=== PATIENT | male | born 1935 | race African-American/Black ===

== ENCOUNTER 2022-02-21 15:00 | Inpatient (IN) | payer OTHER ==
[~2022-02-21] VITALS: Ht 177.8 cm; Wt 74.8 kg
[2022-02-21 16:06] LABS: BASOPHILS % 0.3 % (0.0-2.0); EOSINOPHILS % 0.2 % (0.0-5.0); HEMATOCRIT. 39.5 % (42.0-52.0); HEMOGLOBIN. 13.5 g/dL (14.0-18.0); LYMPHOCYTES % 12.3 % (20.0-50.0); MEAN CORPUSCULAR HEMOGLOBIN 32.1 pg (28.0-32.0); MEAN CORPUSCULAR VOLUME 93.8 fL (80.0-94.0); MONOCYTES % 6.7 % (2.0-8.0); NEUTROPHILS % 80.5 % (40.0-76.0); PLATELET 194 x1000/uL (130-400); RED BLOOD CELL COUNT 4.21 mill/uL (4.7-6.1); RED CELL DISTRIBUTION WIDTH 13.7 % (11.6-14.6)
[2022-02-21 16:10] LABS: CHLORIDE 105 mEq/L (98-107)
[2022-02-21] MEDS ORDERED: ACETAMINOPHEN 325MG TABLET PO ONE (16:45)
[2022-02-21 17:12] LABS: CREATINE KINASE 67 IU/L (39-308); ETHANOL BLOOD < 10 mg/dL
[2022-02-21] MEDS ORDERED: MORPHINE SULFATE 4 MG/ML CPJ (NOT FOR IM USE) IV ONE (19:00)
[2022-02-21] MEDS ORDERED: KETOROLAC 30MG/ML VIAL IV ONE (21:45)
[2022-02-21] MEDS ORDERED: SODIUM CHLORIDE 0.9% 1,000 ML IV ONE (21:45)
[2022-02-22 05:58] LABS: CLARITY URINE CLEAR (CLEAR); COLOR URINE YELLOW (YELLOW); KETONES URINE NEGATIVE (NEGATIVE); LEUKOCYTE ESTERASE URINE NEGATIVE (NEGATIVE); NITRITE URINE NEGATIVE (NEGATIVE); OCCULT BLOOD URINE NEGATIVE (NEGATIVE); PH URINE 5.5 (4.5-8.0); PROTEIN URINE NEGATIVE (NEGATIVE); SPECIFIC GRAVITY URINE 1.016 (1.005-1.030)
[2022-02-22 06:16] LABS: *AMPHETAMINES SCREEN URINE NEGATIVE (NEGATIVE); *BARBITURATES SCREEN URINE NEGATIVE (NEGATIVE); *BENZODIAZEPINES SCREEN URINE NEGATIVE (NEGATIVE); *COCAINE SCREEN URINE NEGATIVE (NEGATIVE); CANNABINOID URINE SCREEN NEGATIVE (NEGATIVE); METHADONE URINE SCREEN NEGATIVE (NEGATIVE); OPIATES URINE SCREEN PRESUMTIVE POSITIVE (NEGATIVE); PHENCYCLIDINE URINE SCREEN NEGATIVE (NEGATIVE)
[2022-02-22] MEDS ORDERED: DEXTROSE 50% WATER 50ML SYRINGE IV PRN (09:00)
[2022-02-22] MEDS ORDERED: NALOXONE HCL 0.4MG/ML VIAL IV PRN (09:00)
[2022-02-22] MEDS: BLOOD SUGAR DIAGNOSTIC STRIP TEST SCH ×4 (12:00→20:12)
[2022-02-22] MEDS: HYDROCODONE/ACETAMINOPHEN 5/325MG TABLET PO PRN (12:14)
[2022-02-22] MEDS: INSULIN LISPRO 100 UNITS/ML SUBCUT SCH ×4 (12:14→20:49)
[2022-02-22 17:15] VITALS: BP 148/63
[2022-02-22 20:00] VITALS: BP 157/68
[2022-02-23 04:00] VITALS: BP 131/85
[2022-02-23] MEDS: BLOOD SUGAR DIAGNOSTIC STRIP TEST SCH ×3 (07:20→17:20)
[2022-02-23] MEDS ORDERED: METF500T60 MT (07:42)
[2022-02-23] MEDS ORDERED: GABA250S4 PO (07:42)
[2022-02-23 08:00] VITALS: BP 159/74
[2022-02-23] MEDS: INSULIN LISPRO 100 UNITS/ML SUBCUT SCH ×3 (08:26→17:50)
[2022-02-23 12:00] VITALS: BP 149/66
[2022-02-23] MEDS: HYDROCODONE/ACETAMINOPHEN 5/325MG TABLET PO PRN ×2 (15:06→19:24)
[2022-02-23 16:00] VITALS: BP 135/66
[2022-02-23] MEDS ORDERED: DOCUSATE SODIUM 250MG CAPSULE PO SCH (17:00)
[2022-02-23 18:37] VITALS: BP 135/66
[2022-02-23 19:24] VITALS: BP 135/66
== END 2022-02-23 19:30 | disposition short-term general hospital (02) | DRG 536 ==
LOC: ER 15:00 → MICUSO 21:37 → 6EST 02-22 17:08
PROVIDERS: ADMIT Internal Medicine; ATTEND Internal Medicine
DX: S72.011A Unspecified intracapsular fracture of right femur, initial encounter for closed fracture (principal); E11.9 Type 2 diabetes mellitus without complications; I10 Essential (primary) hypertension; G90.8 Other disorders of autonomic nervous system; Z20.822 Contact with and (suspected) exposure to COVID-19; W18.30XA Fall on same level, unspecified, initial encounter; Y93.89 Activity, other specified; Y92.89 Other specified places as the place of occurrence of the external cause; Y99.8 Other external cause status
CPT/HCPCS: 36415; 73502; 80053; 80305; 80320; 81003; 82550; 82962; 83605; 83880; 84484; 85025; 87426; 93005; 93306; 99285; J1815; J1885; J2270; J7030; G0480

== ENCOUNTER 2022-11-27 20:16 | Emergency (ER) | payer MEDICARE, OTHER ==
[~2022-11-27] VITALS: Ht 177.8 cm; Wt 75.0 kg
[2022-11-27] MEDS ORDERED: IBUPROFEN 600MG TABLET PO ONE (22:00)
[2022-11-27 22:16] VITALS: BP 149/74
== END 2022-11-27 23:06 | disposition home or self-care (01) ==
LOC: ER 20:16
DX: S63.592A Other specified sprain of left wrist, initial encounter (principal); M13.862 Other specified arthritis, left knee; I10 Essential (primary) hypertension; E11.9 Type 2 diabetes mellitus without complications; N40.0 Benign prostatic hyperplasia without lower urinary tract symptoms; Z95.0 Presence of cardiac pacemaker; X58.XXXA Exposure to other specified factors, initial encounter; Y93.89 Activity, other specified; Y92.018 Other place in single-family (private) house as the place of occurrence of the external cause
CPT/HCPCS: 73110; 73560; 99284

== ENCOUNTER 2023-07-13 23:07 | Emergency (ER) | payer OTHER ==
[~2023-07-13] VITALS: Ht 172.7 cm; Wt 73.0 kg
[2023-07-13 23:04] VITALS: O2SAT 100
[2023-07-14] MEDS ORDERED: ASPIRIN 81MG TABLET PO ONE (00:30)
[2023-07-14 01:00] LABS: BASOPHILS % 0.5 % (0.0-2.0); EOSINOPHILS % 2.5 % (0.0-5.0); HEMATOCRIT. 36.8 % (42.0-52.0); HEMOGLOBIN. 12.4 g/dL (14.0-18.0); LYMPHOCYTES % 43.6 % (20.0-50.0); MEAN CORPUSCULAR HEMOGLOBIN 31.4 pg (28.0-32.0); MEAN CORPUSCULAR HGB CONC 33.7 g/dL (31.0-37.0); MEAN PLATELET VOLUME 7.9 fl (7.4-10.4); MONOCYTES % 9.2 % (2.0-8.0); NEUTROPHILS % 44.2 % (40.0-76.0); PLATELET 179 x1000/uL (130-400); RED BLOOD CELL COUNT 3.96 mill/uL (4.7-6.1); RED CELL DISTRIBUTION WIDTH 14.4 % (11.6-14.6); WHITE BLOOD COUNT 4.5 x1000/uL (4.5-11.0)
[2023-07-14 01:20] LABS: CHLORIDE 109 mEq/L (98-107); INDEX HEMOLYSI 1 (1-3); INDEX ICTERIC 1 (1-4); INDEX LIPEMIC 1 (1-3); POTASSIUM 3.7 mEq/L (3.5-5.1); SODIUM 141 mEq/L (136-145)
[2023-07-14 01:39] LABS: ALANINE AMINOTRANSFERASE 16 IU/L (13-61); ALBUMIN 3.4 g/dL (3.4-5.0); ASPARTATE AMINOTRANSFERASE 14 IU/L (15-37); BILIRUBIN TOTAL 0.4 mg/dL (0.1-1.0); CALCIUM 8.5 mg/dL (8.5-10.1); CARBON DIOXIDE 30 mEq/L (21-32); CREATININE 1.1 mg/dL (0.6-1.3); GLUCOSE 181 mg/dL (70-105); NT PRO B-TYPE NATRIURETIC PEP 194 pg/mL (5-125); TROPONIN I HIGH SENSITIVITY 28 ng/L (<78); UREA NITROGEN BLOOD 13 mg/dL (7-21)
[2023-07-14 03:07] LABS: TROPONIN I HIGH SENSITIVITY 34 ng/L (<78)
[2023-07-14] MEDS ORDERED: IOHEXOL-350 100 ML BOTTLE ONE (03:53)
[2023-07-14 05:05] VITALS: BP 151/73; PULSE 60; RESP 16; TEMP 98.4
== END 2023-07-14 05:13 | disposition short-term general hospital (02) ==
LOC: ER 23:07
DX: R07.9 Chest pain, unspecified (principal); E11.9 Type 2 diabetes mellitus without complications
CPT/HCPCS: 99285; 71045; 87426; 80053; 83880; 85025; 85379; 84484; 36415; C9803; Q9967